=== PATIENT | female | born 1960 | race Caucasian/White ===

== ENCOUNTER 2022-07-22 14:26 | Emergency (ER) | payer BC ==
[2022-07-22] MEDS ORDERED: Tetracaine HCl/PF 0.5% 4 ML Bottle EYEBOTH ONE (14:49)
[2022-07-22] MEDS ORDERED: Erythromycin Base 0.5% Ophth Oint 3.5 GM Tube EYERT ONE (15:09)
== END 2022-07-22 15:48 | disposition home or self-care (01) ==
LOC: LL.ED 14:26
DX: S05.01XA Injury of conjunctiva and corneal abrasion without foreign body, right eye, initial encounter (principal); I10 Essential (primary) hypertension; Z87.891 Personal history of nicotine dependence; Z88.1 Allergy status to other antibiotic agents; Z79.82 Long term (current) use of aspirin; Z79.899 Other long term (current) drug therapy; W22.09XA Striking against other stationary object, initial encounter
CPT/HCPCS: 99283; A9270-GY